=== PATIENT | male | born 1955 | race Caucasian/White ===

== ENCOUNTER 2022-06-25 09:29 | Outpatient (CLI) | payer MEDICARE, OTHER, SELFPAY | END 2022-06-25 09:30 | disposition home or self-care (01) | PROVIDERS: PCP Family Medicine; Visit Provider Family Medicine | DX: Z00.00 Encounter for general adult medical examination without abnormal findings (principal); E78.00 Pure hypercholesterolemia, unspecified; I10 Essential (primary) hypertension; E11.9 Type 2 diabetes mellitus without complications; R41.3 Other amnesia; R26.81 Unsteadiness on feet; R53.1 Weakness; R53.83 Other fatigue; Z12.5 Encounter for screening for malignant neoplasm of prostate | CPT/HCPCS: 80053; 80061; 82043; 82570; 84153; 84443 ==

== ENCOUNTER 2022-11-04 16:48 | Outpatient (CLI) | payer MEDICARE, OTHER, SELFPAY | END 2022-11-04 16:49 | disposition home or self-care (01) | PROVIDERS: PCP Family Medicine; Visit Provider Family Medicine | DX: Z00.00 Encounter for general adult medical examination without abnormal findings (principal); R63.4 Abnormal weight loss; E78.00 Pure hypercholesterolemia, unspecified; D64.9 Anemia, unspecified; I10 Essential (primary) hypertension; E11.9 Type 2 diabetes mellitus without complications | CPT/HCPCS: 82607; 82728; 83540 ==

== ENCOUNTER 2023-03-31 08:46 | Outpatient (CLI) | payer MEDICARE, OTHER, SELFPAY ==
--- OUTSIDE RECORDS SUMMARY | 2023-03-31 08:49 | XMS_ITS | Clinical Summary ---
Author Name Unknown Organization [facility] Address [address] [place] [address] Care Team Providers Care Sales Representative Business Courses Name Role Phone Unavailable Primary Care Provider Unavailabl e Source Comments You are receiving this document as you are listed as the primary care provider,follow-up provider, or the patient has been referred to you for consultation.This is in compliance with the Medicare and[facility] Cent[facility]aid EHR Incentive Program,which states Providers who transition their patient to another setting of careor provider of care or refers their patient to another provider of care shouldprovide summary care record for each transition of care or referral. [facility] Allergies Active Allergy Reactions Criticality Noted Date Comments Molds & Smuts Cough,Runny Nose Medium 06/27/2018 Nuts Breathing Difficulty High 12/27/2019 Penicillins Anaphylaxis High 12/27/2019 Medications Medication Sig Dispensed Refills Start Date End Date Status Pyridoxine HCl (B-6) 100 MG TABS 0 Active atorvastatin (LIPITOR) 10 MG tablet Take 1 Tablet by mouth daily. 90 Tablet 3 07/28/2020 Active donepezil (ARICEPT) 5 MG tablet Take 1 Tablet by mouth daily at bedtime. 90 Tablet 1 07/28/2020 Active lisinopril (ZESTRIL) 20 MG tablet Take 1 Tablet by mouth daily. 90 Tablet 3 07/28/2020 Active metFORMIN (GLUCOPHAGE) 1000 MG tablet TAKE 1 TABLET BY MOUTH TWICE DAILY WITH MEALS 180 Tablet 1 03/03/2021 Active Active Problems Problem Noted Date Diagnosed Date Diabetes mellitus, type 2 12/27/2019 Essential hypertension 12/27/2019 History of impaired cognition 12/27/2019 Hyperlipidemia 12/27/2019 FH: Parkinson's disease 12/27/2019 Overview: Mom Immunizations Name Administration Dates Next Due Flu Vac (3+ yrs) 01/29/2005,03/27/2004 Influenza IIV4 (Quadrivalent) 0.5mL (89219) 10/24 Influenza, Unspecified Formulation 03/15/2012 Tdap 11/10/2010 Zoster (Zostavax) 03/15/2012 Social History Tobacco Use Types Packs/Day Years Used Date Smoking Tobacco: Some Days Pipe Cigars Smokeless Tobacco: Never Comments:once month Alcohol Use Standard Drinks/Week Comments Yes 2 (1 standard drink = 0.6 oz pur e alcohol) PHQ-2 Answer Date Recorded PHQ-2 Score 2 07/28/2020 Sex and Gender Information Value Date Recorded Sex Assigned at Not on file Gender Identity Not on file Sexual Orientation Not on file Last Filed Vital Signs Vital Sign Reading Time Taken Comments Blood Pressure 138/72 07/28/2020 3:36 PM CDT Pulse 85 07/28/2020 3:36 PM CDT Temperature - - Respiratory Rate 16 07/28/2020 3:36 PM CDT Oxygen Saturation - - Inhaled Oxygen Concentration - - Weight 78.5 kg (173 lb) 07/28/2020 3:36 PM CDT Height 177.8 cm (5' 10) 07/28/2020 3:36 PM CDT Body Mass Index 24.82 07/28/2020 3:36 PM CDT Plan of Treatment Health Maintenance Due Date Last Done Comments Diabetes: Eye Exam 1955 Diabetes: Foot Exam 1955 Hep C Screening (Preventive Services) 1955 Pneumococcal 65+ Yrs (1 - PCV) 11/02/1959 FIT Colon Cancer Screening 1997 Zoster/Shingles (2 of 3) 05/10/2012 03/15/2012 Diabetes: HGBA1C 10/25/2020 07/25/2020, , 01/10/2019, Additional history exists DTaP/Tdap/Td (2 - Tdap) 11/10/2020 11/10/2010 Diabetes: Creatinine 07/25/2021 07/25/2020, 03/05/19 21 Diabetes: Urine Microalbumin 07/25/2021 07/25/2020 Medicare Annual Wellness Visit 07/28/2021 07/28/2020 COVID-19 Vaccine ( season) 2022 05/16/2020, 04/08/2020 Influenza (#1) 2022 11/21/2019, 02/22, 01/29/2005, Additional history exists Diabetes: Lipid Panel 07/25/2025 07/25/2020 Cholesterol Discontinued 07/25/2020 HepA Aged Out No longer eligi ble based on patient's age to complete this topic HepB Aged Out No longer eligi ble based on patient's age to complete this topic Hib Aged Out No longer eligi ble based on patient's age to complete this topic IPV (Polio) Aged Out No longer eligi ble based on patient's age to complete this topic MCV4 Aged Out No longer eligi ble based on patient's age to complete this topic [phone] [place] [address] Ravi Hernandez Personal/Family Self 1955 [phone] [place] [address]
--- OUTSIDE RECORDS SUMMARY | 2023-03-31 08:49 | XMS_ITS | Encounter Summary ---
Author Name Unknown Organization [facility] Address [address] [place] [address] Care Team Providers Care Assault Amphibious Vehicle Officer Name Role Phone Jing Garnett MD Primary Care Provider [phone] Reason for Visit * Reason Comments Refill metFORMIN (GLUCOPHAG E) 1000 MG tablet [Pharmacy Med Name: METFORMIN 1000MG TABLETS] Encounter Details Date Type Department Care Team Description 03/22/2022 Refill [place] [address] [facility] [id number] [place] [phone] [place] [address] [place], [place] [id number] Refill (metFORMIN (GLUCOPHAGE) 1000 MG tablet [Pharmacy Med Name: METFORMIN 1000MG TABLETS]) Social History Tobacco Use Types Packs/Day Years [...] on file Sexual Orientation Not on file documented as of this encounter Nursing Notes * Adina Cazares - 03/25/2022 8:56 AM CST Medication Refill - Due for Visit Medication still pending, patient is due to be seen in the next 30 days. Called patient, was: Successful in reaching patient. Patient is due for a: Video/Office Visit Patient declined to schedule due to: Patient no longer receiving care within organization. Frontline Action: Remove/update PCP. Remove pended medication and Sign Visit or if unable, route aslow priority to Refill Pool. SERVICES ARCHITECT * Apple Tobin - 03/24/2022 9:48 AM CST Medication Refill - Due for Visit Medication still pending, patient is due to be seen in the next 30 days. Called patient, was: Successful in reaching patient. We recently received a refill request for one of your medications. To continue managing your medication refills, your clinician would like to see you for a(n): Patient is due for a: Video/Office Visit Patient declined to schedule due to: The patient was driving and asked if someone could call him on03/26/22 to schedule a appointment. SERVICES ARCHITECT * Kenna Villeda RN - 03/24/2022 8:31 AM CST Further Assistance Needed on Refill from Shared Services Manager Patient is due for Qualifying Visit and lab(s). Medication is still pending. Patient is due for an Office/Video Visit in the next 30 days. Call Patient and document using .[email or web address]. After attempting to schedule patient: Please route to: Jing Garnett MD or covering provider. Requested Prescriptions Pending Prescriptions Disp Refills metFORMIN (GLUCOPHAGE) 1000 MG tablet [Pharmacy Med Name: METFORMIN 1000MG TABLETS] 180 Tablet 0 Sig: TAKE 1 TABLET BY MOUTH TWICE DAILY WITH MEALS SERVICES ARCHITECT * Interface, Out Surescripts Prov Query - 03/22/2022 4:13 PM CST metFORMIN (GLUCOPHAGE) 1000 MG tablet [Pharmacy Med Name: METFORMIN 1000MG TABLETS] Medication started: 12/21/2019 Last ordered by JING GARNETT: 03/03/2021 (384 days ago) QTY: 180, Refills: 1, Sig: take 1 tabletby mouth twice daily with meals (unchanged) -> An office visit is overdue (performed over 20 months ago, required every 12 months). -> Cr and HBA1C are overdue (performed over 20 months ago, required every 12 months) Last qualifying visit: 07/28/2020 (with JING GARNETT) Next scheduled visit: None Cr: 0.9 mg/dL on 07/25/2020 HBA1C: 7.1 % on 07/25/2020 [facility] Embedded Refills, Reference: [id number], 03/22/2022 4:13:24 PM WEB SERVICES ARCHITECT, Pool: LINK REFILL ([id number]) SERVICES ARCHITECT * Interface, Out Astaro Prov Query - 03/22/2022 4:13 PM CST The following lab order(s) may be associated with the Result Note below: HGB A1C; BASIC METABOLIC PANEL Notes recorded by Jing Garnett MD on 07/28/2020 at 3:32 PM CDT Discussed in clinic SERVICES ARCHITECT documented in this encounter Plan of Treatment Not on file documented as of this encounter Visit Diagnoses Not on filedocumented in this encounter Care Teams Assault Amphibious Vehicle Officer Relationship Specialty [place] [address] [place] [address] PCP - General Family Practice 06/04/20 03/24/22 documented as of this encounter
== END 2023-03-31 08:47 | disposition home or self-care (01) ==
PROVIDERS: PCP Family Medicine; Visit Provider Family Medicine
DX: Z00.00 Encounter for general adult medical examination without abnormal findings (principal); E78.00 Pure hypercholesterolemia, unspecified; I10 Essential (primary) hypertension; E11.9 Type 2 diabetes mellitus without complications; D64.9 Anemia, unspecified; R97.20 Elevated prostate specific antigen [PSA]
CPT/HCPCS: 80053; 80061; 82043; 82570; 82728; 83540; 84153; 84154

== ENCOUNTER 2023-07-12 13:26 | Outpatient (CLI) | payer MEDICARE, OTHER, SELFPAY ==
--- OUTSIDE RECORDS SUMMARY | 2023-07-12 13:29 | XMS_ITS | Clinical Summary ---
Author Name Unknown Organization [facility] Address [address] [place] [address] Care Team Providers Care Senior Embedded Software Engineer Name Role Phone Unavailable Primary Care Provider Unavailabl e Source Comments You are receiving this document as you are listed as the primary care provider,follow-up provider, or the patient has been referred to you for consultation.This is in compliance with the Medicare and[facility] Hospitalcaid EHR Incentive Program,which states Providers who transition their patient to another setting of careor provider of care or refers their patient to another provider of care shouldprovide summary care record for each transition of care or referral. [facility] Allergies Active Allergy Reactions Criticality Noted Date Comments Molds & Smuts Cough,Runny Nose Medium 06/27/2018 Nuts Breathing Difficulty High 12/27/2019 Penicillins Anaphylaxis High 12/27/2019 Medications Medication Sig Dispensed Refills Start Date End Date Status Pyridoxine HCl (B-6) 100 MG TABS Active atorvastatin (LIPITOR) 10 MG tablet Take [...] (3+ yrs) 01/29/2005,03/27/2004 Influenza IIV4 (Quadrivalent) 0.5mL (60173) 10/24 Influenza, Unspecified Formulation 03/15/2012 Tdap 11/10/2010 [...] Vaccine ( season) 2022 05/16/2020, 04/08/2020 Influenza (Season Ended) 2023 020, 03/15/2012, 01/29/2005, Additional history exists Diabetes: Lipid Panel [...] on patient's age to complete this topic Procedures Procedure Name Priority Date/Time Associated Diagnosis Comments BASIC METABOLIC PANEL Routine 07/25/2020 8:26 AM CDT Type 2 diabetes mellitus with diabetic neuropathy, without long-term current use of insulin (HRC) ALBUMIN/CREAT RATIO Routine 07/25/2020 8 :26 AM CDT Type 2 diabetes mellitus with diabetic neuropathy, without long-term current use of insulin (HRC) HGB A1C Routine 07/25/2020 8:26 AM CDT Type 2 diabetes mellitus with diabetic neuropathy, without long-term current use of insulin (HRC) LIPID PANEL & DIRECT LDL (IF NEEDED) Routine 07/25/2020 8:26 AM CDT Type 2 diabetes mellitus with diabetic neuropathy, without long-term current use of insulin (HRC) from Last 3 Months or Most Recently Relevant to Health Maintenance Results * (ABNORMAL) Lipid Panel - LDLD If Trig High (07/25/2020 8:26 AM CDT) [facility] Cholesterol 149 0 - 199 mg/dL 07/25/2020 12:36 PM T [facility] Triglyceride 255(H) <=149 mg/dL 07/25/2020 12:36 PM [facility] HDL Cholesterol 39(L) >=40 mg/dL 12:36 PM [facility] LDL, Calculated 59 <130 mg/dL 12:36 PM [facility] Non HDL Chol, Calculated 110 <=159 mg/dL 07/25/2020 12:36 PM [facility] Cholesterol/HDL Ratio 3.8 07/25/2020 12:36 PM [facility] Hours Fasting 9 07/25/2020 12:36 PM [facility] Blood Venipuncture / Unknown 07/25/2020 8:26 AM CDT 07/25/2020 8:26 AM CDT Delroy Carranza MD LAB_1 [facility] [address] [place] [address], [facility] [phone] [facility] [address] [place] [address], [facility] [phone] * (ABNORMAL) Basic Metabolic Panel (07/25/2020 8:26 AM CDT) Sodium 141 136 - 145 mmol/L 07/25/2020 12:36 PM [facility] Potassium 4.4 3.5 - 5.1 mmol/L 07/25/2020 12:36 PM [facility] Chloride 106 98 - 109 mmol/L 07/25/2020 12:36 PM [facility] CO2 25 20 - 29 mmol/L 07/25/2020 12:36 PM [facility] Anion Gap 10 7 - 16 mmol/L 07/25/2020 12:36 PM [facility] Calcium 9.2 8.4 - 10.4 mg/dL 07/25/2020 12:36 PM [facility] BUN 11 7 - 26 mg/dL 07/25/2020 12:36 PM [facility] Creatinine 0.90 0.73 - 1.18 mg/dL 07/25/2020 12:36 PM [facility] GFR, Estimated >60 >60 mL/min/1.7 3m2 07/25/2020 12:36 PM CDT [facility] Glucose 128(H) 70 - 100 mg/dL 07/25/2020 12:36 PM CDT [facility] Comment:The given reference range is for the fasting state. Non-fasting reference range for glucose is 70 - 180 mg/dL. Hours Fasting 9 07/25/2020 12:36 PM T [facility] Blood Venipuncture / Unknown 07/25/2020 8:26 AM CDT 07/25/2020 8:26 AM CDT Delroy Carranza MD LAB_1 Performing Organization Address [facility]/ZIP Co de Phone Number [facility] [address] [place] [address], [facility] [phone] [facility] [address] [place] [address], [facility] [phone] * Microalbumin Urine Random (UMAR) (07/25/2020 8:26 AM CDT) Albumin, Urine, Random 16.5 mg/L 07/25/2020 3:14 PM T [facility] Creatinine, Urine, Random 71 >20 mg/dL 07/25/2020 3:14 PM T [facility] Albumin/Creati nine Ratio, Urine, Random 23 <30 mg/g 07/25/2020 3:14 PM T [facility] Urine Non-blood Collection / Unknown 07/25/2020 8:26 AM CDT 07/25/2020 8:26 AM CDT Delroy Carranza MD LAB_1 [facility] [address] [place] [address], [facility] [phone] * (ABNORMAL) Hemoglobin A1C Glycosylated (07/25/2020 8:26 AM CDT) Hemoglobin A1C 7.1(H) <=5.6 % 07/25/2020 5:15 PM CDT [facility] Blood Venipuncture / Unknown 07/25/2020 8:26 AM CDT 07/25/2020 8:[address] [facility] - 07/25/2020 5:15 PM CDT For patients not previously diagnosed with diabetes: 5.7-6.4%: Increased risk for diabetes 6.5% and greater: Diagnostic for diabetes For patients diagnosed with diabetes: <8.0%: Goal of therapy for ages 18-75 Clinicians may recommend a higher or lower goal for specific individuals. Delroy Carranza MD LAB_1 [facility] [address] [address] [phone] from Last 3 Months or Most Recently Relevant to Health Maintenance [phone] [place] [address] Ravi Hernandez Personal/Family Self 1955 [phone] [place] [address]
== END 2023-07-12 13:27 | disposition home or self-care (01) ==
LOC: LKVREF 13:27
PROVIDERS: PCP Family Medicine; Visit Provider Family Medicine
DX: E11.9 Type 2 diabetes mellitus without complications (principal); I10 Essential (primary) hypertension; R26.81 Unsteadiness on feet; Z91.148 Patient's other noncompliance with medication regimen for other reason
CPT/HCPCS: 82728

== ENCOUNTER 2023-10-11 13:17 | Outpatient (CLI) | payer MEDICARE, OTHER, SELFPAY ==
--- OUTSIDE RECORDS SUMMARY | 2023-10-11 13:22 | XMS_ITS | Clinical Summary ---
Author Organization [facility] Address [address] [place] [address] Care Team Providers Care Manager Underwriting Name Role Phone Unavailable Primary Care Provider Unavailabl e Source Comments You are receiving this document as you are listed as the primary care provider,follow-up provider, or the patient has been referred to you for consultation.This is in compliance with the Medicare andS[facility] Hospitalcaid EHR Incentive Program,which states Providers who transition their patient to another setting of careor provider of care or refers their patient to another provider of care shouldprovide summary care record for each transition of care or referral. [employer] Allergies Active Allergy Reactions Criticality Noted Date [...] 12/27/2019 Hyperlipidemia 12/27/2019 FH: Parkinson's disease 12/27/2019 Overview (12/27/2019): Mom Immunizations Name Administration Dates Next Due Flu Vac (3+ yrs) 01/29/2005,03/27/2004 Influenza IIV4 (Quadrivalent) 0.5mL (35154) 10/24 Influenza, Unspecified Formulation 03/15/2012 Tdap 11/10/2010 [...] ( season) 2022 05/16/2020, 04/08/2020 Influenza (#1) 2023 11/21/2019, 02/22, 01/29/2005, Additional history exists Diabetes: [...] If Trig High (07/25/2020 8:26 AM CDT) [facility] Cholesterol 149 0 - 199 mg/dL 07/25/2020 12:36 PM T [facility] Triglyceride 255(H) <=149 mg/dL 07/25/2020 12:36 PM [facility] HDL Cholesterol 39(L) >=40 mg/dL 12:36 PM [facility] LDL, Calculated 59 <130 mg/dL 12:36 PM [facility] Non HDL Chol, Calculated 110 <=159 mg/dL 07/25/2020 12:36 PM [facility] Cholesterol/HDL Ratio 3.8 07/25/2020 12:36 PM [facility] Hours Fasting 9 07/25/2020 12:36 PM [facility] Blood Venipuncture / Unknown 07/25/2020 8:26 AM CDT 07/25/2020 8:26 AM CDT Delroy Carranza MD LAB_1 [facility] [address] [place] [address], [facility] [phone] [facility] [address] [place] [address], [facility] [phone] * (ABNORMAL) Basic Metabolic Panel (07/25/2020 8:26 AM CDT) Sodium 141 136 - 145 mmol/L 07/25/2020 12:36 PM [facility] Potassium 4.4 3.5 - 5.1 mmol/L 07/25/2020 12:36 PM [facility] Chloride 106 98 - 109 mmol/L 07/25/2020 12:36 PM [facility] CO2 25 20 - 29 mmol/L 07/25/2020 12:36 PM [facility] Anion Gap 10 7 - 16 mmol/L 07/25/2020 12:36 PM [facility] Calcium 9.2 8.4 - 10.4 mg/dL 07/25/2020 12:36 PM [facility] BUN 11 7 - 26 mg/dL 07/25/2020 12:36 PM [facility] Creatinine 0.90 0.73 - 1.18 mg/dL 07/25/2020 12:36 PM [facility] GFR, Estimated >60 >60 mL/min/1.7 3m2 07/25/2020 12:36 PM CDT [facility] Glucose 128(H) 70 - 100 mg/dL 07/25/2020 12:36 PM CDT [facility] Comment:The given reference range is for the fasting state. Non-fasting reference range for glucose is 70 - 180 mg/dL. Hours Fasting 9 07/25/2020 12:36 PM CDT [facility] Blood Venipuncture / Unknown 07/25/2020 8:26 AM CDT 07/25/2020 8:26 AM CDT Delroy Carranza MD LAB_1 Performing Organization Address [facility]/ZIP Co de Phone Number [facility] [address] [place] [address], [facility] [phone] [facility] [address] [place] [address], [facility] [phone] * Microalbumin Urine Random (UMAR) (07/25/2020 8:26 AM CDT) Albumin, Urine, Random 16.5 mg/L 07/25/2020 3:14 PM CDT [facility] Creatinine, Urine, Random 71 >20 mg/dL 07/25/2020 3:14 PM CDT [facility] Albumin/Creati nine Ratio, Urine, Random 23 <30 mg/g 07/25/2020 3:14 PM T [facility] Urine Non-blood Collection / Unknown 07/25/2020 8:26 AM CDT 07/25/2020 8:26 AM CDT Delroy Carranza MD LAB_1 Performing Organization Address [facility]/ZIP Co de Phone Number [facility] [address] [place] [address], [facility] [phone] * (ABNORMAL) Hemoglobin A1C Glycosylated (07/25/2020 8:26 AM CDT) Hemoglobin A1C 7.1(H) <=5.6 % 07/25/2020 5:15 PM CDT [facility] Blood Venipuncture / Unknown 07/25/2020 8:26 AM CDT 07/25/2020 8:26 AM CDT Narrative [facility] [place] [facility] - 07/25/2020 5:15 PM CDT For patients not previously diagnosed with diabetes: 5.7-6.4%: Increased risk for diabetes 6.5% and greater: Diagnostic for diabetes For patients diagnosed with diabetes: <8.0%: Goal of therapy for ages 18-75 Clinicians may recommend a higher or lower goal for specific individuals. Delroy Carranza MD LAB_1 [facility] [address] [address] [phone] from Last 3 Months or Most Recently Relevant to Health Maintenance [phone] [place] [address] Ravi Hernandez Personal/Family Self 1955 [phone] [place] [address]
== END 2023-10-11 13:18 | disposition home or self-care (01) ==
PROVIDERS: PCP Family Medicine; Visit Provider Family Medicine
DX: E78.00 Pure hypercholesterolemia, unspecified (principal); I10 Essential (primary) hypertension; D64.9 Anemia, unspecified; E11.9 Type 2 diabetes mellitus without complications
CPT/HCPCS: 80048; 80061

== ENCOUNTER 2023-10-19 12:40 | Outpatient (CLI) | payer MEDICARE, OTHER, SELFPAY ==
--- OUTSIDE RECORDS SUMMARY | 2023-10-19 12:43 | XMS_ITS | Data Portability ---
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 Not available 06/25/2021 14:18:42 10/01/2021 10/01/2021 65 year old male with an elevated prostate specific antigen here for prostate biopsy. Not available 09/30/2021 20:37:41 Plan of Treatment Reminders Order Date Submit Date Provider Last Modified By Organization Details Last Modified Time Details Appointments None recorded. Lab urinalysis, dipstick 2021 [facility], [address], [address], [place], [address], 14:44:33 biopsy, prostate 2021 [facility], [address], [address], [place], [address], 13:32:27 Referral None recorded. Procedures None recorded. Surgeries None recorded. Imaging MRI, prostate, w/wo contrast - please schedule this pt //pt req do not leave VM 2021 [place], [address], [address], [place], [address], 17:39:15 Medication Orders ciprofloxac in 500 mg tablet 2021 LILY [id number], [address], [place], [phone], 14:23:40 tobramycin 40 mg/mL injection solution 2021 022 [email or web address] [facility] #[id number], [address], [place], [phone], 10:06:54 Patient TargetsNo targets recorded. Patient Instructions Encounter Date Encounter Id Patient Instructions Last Modified By Organization Details Last Modified Time 06/25/2021 [id number] INSTRUCTIONS FOR PROSTATE ULTRASOUND AND / OR PROSTATE BIOPSY You have been scheduled for a transrectal ultrasound of the prostate to be done by Dr. Nagi Casper. This procedure will be done at the [facility] either in our [place] office near [facility] or at our [place] office. It is relatively painless and provides excellent anatomical detail of your prostate gland. The procedure involves inserting a small probe in the rectum, which takes ultrasound pictures of your prostate, seminal vesicles, and bladder. Please come to the procedure with a full bladder. Avoid urinating at least two hours prior to the procedure. It is not necessary to fast overnight. You may eat breakfast, and lunch the day of your procedure. There are certain medications that can interfere with the normal clotting of the blood. Please follow directions for medications that should be discontinued prior to procedure: ASPIRIN ? please do not take Aspirin for at least 5 days prior to your scheduled prostate biopsy, and at least 2 days after your biopsy. PLAVIX / CLOPIDOGREL and ELIQUIS/APIXABAN ? Patients who take these medications should check with their ordering provider about holding these medications prior to procedure. We recommend if you are on Plavix or Eliquis and if your [employer] Developer or ordering provider agrees, you should discontinue taking this medication for 7 days prior to the prostate biopsy. Most patients may resume it 2 days after the biopsy provided there is no serious bleeding. OTHER BLOOD THINNERS ? COUMADIN/WARFARIN, or XARELTO ? please discontinue these medications 5 days before the biopsy, and resume 2 days following the biopsy provided there is no serious bleeding. In order to clean out the rectum of any retained stool, you must give yourself a Fleet Enema two hours prior to the scheduled ultrasound. A Fleet Enema can be purchased over- the-counter without a prescription, at any pharmacy. Please follow the instructions on the label to administer the enema. A prostate biopsy is often performed at the time of your prostate ultrasound. This is done to rule out the possibility of prostate cancer. The biopsy is done under ultrasonic guidance using a tiny needle that transverses the wall of the rectum and goes directly into the prostate. Before the biopsy is performed, Dr. Casper will use the ultrasonic probe to inject a local anesthetic to decrease the sensation of pain in the prostate. Next, a trigger-activated biopsy needle is used to take approximately 12 samples of the prostate tissue. Most patients will experience a little discomfort with the passage of this needle, but the pain is usually not severe due to the fact there are very few nerve fibers in this part of your anatomy. An antibiotic will be prescribed prior to your scheduled prostate ultrasound and biopsy. This antibiotic is called Ciprofloxacin. Take this one out before your biopsy. These instructions will also be written on the prescription when picked up from your pharmacy. Most patients experience very little pain following the prostate biopsy. You can expect to have a little blood in the urine, or in the stool for up to two weeks after the biopsy. You may also experience a low-grade temperature (fever) that evening. If you are sexually active, you may notice blood in the semen for several weeks. Please make sure to drink plenty of fluids (water) after the procedure. Most patients are able to return to work the next day. No heavy lifting is recommended for 48 hours. Complications follow this procedure are rare. Symptoms to watch for are shaking chills with a fever, severe bleeding with the passage of large blood clots form either the rectum or penis, or difficulty urinating. If you experience any of these symptoms contact our office at [phone]. The prostate biopsy specimens are sent to pathology for microscopic analysis. The final reports is completed within 1-2 business days. You will be notified of the results by Dr. Casper personally. Please be sure to provide a day-time telephone number. If you do not receive the results, please call [phone]. Not available 06/25/2021 14:23:02 We discussed the significance of an elevated serum prostate specific antigen and its utility in screening for prostate cancer. We discussed that while prostate specific antigen levels may be elevated in some men due to benign causes such as trauma, recent sexual intercourse, urinary tract infections, or recent instrumentation, it may also be indicative of underlying prostate cancer. We discussed that a serum prostate specific antigen test alone is not sufficient to determine if prostate cancer is present and further testing is warranted. We then discussed the available options for further evaluations. One option would be to proceed with transrectal ultrasound with prostate needle biopsy. This allows for sampling of the prostate in areas where cancer is likely to be found. This will allow for detection of underlying prostate cancer if it is present. We discussed the limitations of this including under sampling which may lead to under diagnosis. We also discussed the risks most notably bleeding to a degree enough to require intervention (1-2.5%) and infection which may result in hospitalization (1-3%). We also discussed expected after effects of biopsy including temporary hematuria, blood per rectum, and hematospermia which are considered normal after this procedure. A second option we discussed would be to proceed first with an MRI of the prostate. This would allow for detection of underlying lesions of the prostate which are suspicious for cancer. This information could then be utilized for ultrasound-MRI fusion biopsies which may result in improved detection of underlying prostate cancer and also facilitate intermediate surveillance for men in which low risk prostate cancers are identified. We then discussed the role of adjunctive testing in the form (4k score, iso-PSA, or ExoDx) to help better inform risk profile. While this does not tell a man whether he has prostate cancer this may be helpful in making a decision about whether to proceed with a prostate biopsy. He would like to proceed with MRI of the prostate with Uronav prostate biopsy. Not available 06/25/2021 14:22:55 10/01/2021 [id number] Elevated prostat e specific antigen: The patient tolerated the procedure well. We discussed that he can expect to have blood coating the stool for a few days, pink or reddish urine which may be normal, and rust colored ejaculate for up to one month. We discussed important warning signs such as fevers >100.4 which may be indicative of sepsis, worsening blood in the urine with clots and urinary retention, or worsening blood per rectum. In each other these circumstances he should contact the office immediately or go to the Emergency Department. He will be contacted with the results of his biopsy. If he does not receive these results within 5-7 business days he should contact our office. [email or web address] Not available 09/30/2021 20:37:30 Reason for Referral None Reported. Results Created Date Observation Date Name Description Value Unit Range Abnormal Flag Note LastModifiedBy Organization Detail LastModifiedTime 06/26/19 22 06/25/2021 UA DIP CS ADVAN TUS color -advantus YELLOW yellow Not Available [facility] [address] [place] [address], [place], [address], 06/25/2021 14:44:33 06/26/19 22 06/25/2021 UA DIP CS ADVAN TUS appearance -advantus CLEAR clear Not Available [facility] [address] [place] [address], [place], [address], 06/25/2021 14:44:33 06/26/19 22 06/25/2021 UA DIP CS ADVAN TUS glucose -advantus NEGATI VE mg/dL negati ve Not Available [facility] [address] [place] [address], [place], [address], 06/25/2021 14:44:33 06/26/19 22 06/25/2021 UA DIP CS ADVAN TUS bilirubin -advantus NEGATI VE negati ve Not Available [facility] [address] [place] [address], [place], [address], 06/25/2021 14:44:33 06/26/19 22 06/25/2021 UA DIP CS ADVAN TUS ketones -advantus NEGATI VE mg/dL negati ve Not Available [facility] [address] [place] [address], [place], [address], 06/25/2021 14:44:33 06/26/19 22 06/25/2021 UA DIP CS ADVAN TUS sp. gravity -advantus 1.025 1.010- 1.025 Not Available [facility] [address], [place], [address], 06/25/2021 14:44:33 06/26/19 22 06/25/2021 UA DIP CS ADVAN TUS pH -advantus 5.5 5.0-8. 0 Not Available [facility] [address] [place] [address], [place], [address], 06/25/2021 14:44:33 06/26/19 22 06/25/2021 UA DIP CS ADVAN TUS protein -advantus NEGATI VE mg/dL negati ve Not Available [facility] [address] [place] [address], [place], [address], 06/25/2021 14:44:33 06/26/19 22 06/25/2021 UA DIP CS ADVAN TUS urobilinogen -advantus 0.2 normal Not Available [facility] [address], [place], [address], 06/25/2021 14:44:33 06/26/19 22 06/25/2021 UA DIP CS ADVAN TUS nitrites -advantus NEGATI VE negati ve Not Available [facility] [address] [place] [address], [place], [address], 06/25/2021 14:44:33 06/26/19 22 06/25/2021 UA DIP CS ADVAN TUS blood -advantus NEGATI VE negati ve Not Available [facility] [address] [place] [address], [place], [address], 06/25/2021 14:44:33 06/26/19 22 06/25/2021 UA DIP CS ADVAN TUS leukocytes -advantus NEGATI VE negati ve Not Available [facility] [address] [place] [address], [place], [address], 06/25/2021 14:44:33 06/26/19 22 06/25/2021 UA DIP CS ADVAN TUS performed by Macrina Cordova Not Available [facility] [address], [place], [address], 06/25/2021 14:44:33 06/26/19 22 06/25/2021 UA DIP CS ADVAN TUS total urine volume (mL) 30 /mL ----- ----- ----- ----- ----- ----- ----- ----- ----- ----- ----- ----- ----- ----- ---- *Plea note the follo wing minim um quant ities for addit ional urine testi ng: - Atypi cals: 3 mL - Cytol ogy: 20 mL - GC/CH : 2 mL - FISH: 30 mL - Atypi cals w/ GC/CH : 5 mL - Cytol ogy PLUS FISH: 50 mL - Urine Cultu re: 3 mL ----- ----- ----- ----- ----- ----- ----- ----- ----- ----- ----- ----- ----- ----- ---- Not Available [facility] [address], [place], [address], 06/25/2021 14:44:33 07/10/19 22 07/09/2021 MRI, prost ate, w/wo contr ast No observ ation record ed. [facility] [address], [place], [address], 07/09/2021 20:45:58 Result Notes None recorded. Problems Name Problem SNOMED Code Status Onset Date Resolution Date Notes Provider Name and Address Organization Details Recorded Time Prostate specific antigen above reference range 687221309 Active 2023 Warren Meath null, [facility] 4 10:01:17 Type 2 diabetes mellitus 66928955 [facility] 4 10:02:33 Hypertensive disorder 19246908 Active 2023 Warren Ojeda null, [facility] 4 10:02:41 Hyperlipidemia 32984143 [facility] 4 10:02:50 Problem Notes None recorded. Procedures Surgical History Date Name Laterality Status Provider Name and Address Organization Details Recorded Time 2 Prostate Biopsy Procedure completed Nagi Casper MD [address], [place], [address], [facility] 09/30/2021 20:37:13 2 Tobramycin Injection completed Cat Jordan [facility] 10/01/2021 10:07:57 2 Bladder Scan completed Jen Hodges [facility] 06/25/2021 14:14:14 Imaging Results Imaging Date Name Status LastModified by Organiz ation Details LastModified Time 07/09/2021 MRI, prostate, w/wo contrast [place] [id number] [facility] [address] [place] [address] [address], [place], [address], 07/09/2021 20:45:58 Procedure Notes None recorded. Medical Equipment None Reported. Allergies Allergen ID Allergen Name Allergen Category Reaction Reaction Severity Criticality Documentation Date Start Date Code Code System Note Provider Name and Address Organization Details Recorded Time 492719 Medicinal product containin g penicilli n and acting as antibacte rial agent (product) medicatio n Not available Not available Not available 05/11/2023 62190 05 SNOMED [facility] 4 10:02:20 Medications Name Sig Start Date Stop Date Status Note LastModified by Organization Details LastModified Time metformin 500 mg tablet TAKE 1 TABLET BY MOUTH TWICE DAILY WITH A MEAL active Not Available Not Available No t Available donepezil 5 mg tablet TAKE 1 TABLET BY MOUTH DAILY active Not Available Not Available No t Available atorvastatin 10 mg tablet TAKE 1 TABLET BY MOUTH DAILY active Not Available Not Available No t Available lisinopril 20 mg tablet TAKE 1 TABLET BY MOUTH DAILY active Not Available Not Available No t Available Accu-Chek Softclix Lancets TEST TWICE DAILY active Not Available Not Available No t Available ciprofloxacin 500 mg tablet TAKE 1 TABLET BY MOUTH 1 HOUR PRIOR TO PROSTATE BIOPSY active Not Available Not Available No t Available doxycycline monohydrate 100 mg capsule TAKE 1 CAPSULE BY MOUTH TWICE DAILY FOR 14 DAYS active Not Available Not Available No t Available cephalexin 500 mg capsule TAKE 1 CAPSULE BY MOUTH THREE TIMES DAILY active Not Available Not Available No t Available metformin 1,000 mg tablet TAKE 1 TABLET BY MOUTH TWICE DAILY WITH MEALS active Not Available Not Available No t Available tobramycin 40 mg/mL injection solution 160mg prior to procedure 2021 active Not Available Not Available Not Avai lable lisinopril 2.5 mg tablet TAKE 1 TABLET BY MOUTH DAILY active Not Available Not Available No t Available rosuvastatin 5 mg tablet TAKE 1 TABLET BY MOUTH DAILY active Not Available Not Available No t Available rosuvastatin 10 mg tablet TAKE 1 TABLET BY MOUTH DAILY active Not Available Not Available No t Available Accu-Chek Guide test strips USE 1 TO TEST TWICE DAILY active Not Available Not Available No t Available Accu-Chek Guide Me Glucose Meter USE DIRECTED active Not Available Not Available No t Available Vitals Date Recorded Body height Body mass index (BMI) Body weight Provider Name and Address Organization Details Last Updated DateTime 10/01/2021 172.72 cm 28.4 kg/m2 46004.77 g Jose Carrillo [facility] 10/01/2021 09:07:56 Date Recorded Body height Heart rate Systolic blood pressure Diastolic blood pressure Provider Name and Address Organization Details Last Updated DateTime 10/01/2021 172.72 cm 99 /min 155 mm[Hg] 91 mm[Hg] Cat Jordan [facility] 10/01/2021 10:08:10 Social History Question Answer Notes LastModified by Organizat ion Details LastModified Time Tobacco Smoking Status Never Smoker once in a while will smoke cigars Jencarlos zapata [facility] 06/25/2021 14:12:34 What Is Your Level Of Alcohol Consumption? Occasional Three Martinis A Week Information not available 06/25/2021 What Is Your Level Of Caffeine Consumption? Occasional 2-3 Times Monthly/stovall s Take Exedrine W/ Caffeine Daily Information not available 06/25/2021 Are You Currently Employed? No Information not available 06/25/2021 Do You Or Have You Ever Used E-cigarettes Or Vape? Never Used Electronic Cigarettes Information not available 06/25/2021 What Was The Date Of Your Most Recent Tobacco Screening? 10/01/2021 [email or web address] Information not available 10/01/2021 What Is Your Relationship Status? Information not available 06/25/2021 Are You Sexually Active? No Information not available 06/25/2021 Do You Or Have You Ever Used Smokeless Tobacco? Never Used Smokeless Tobacco Information not available 06/25/2021 Do You Use Any Illicit Or Recreational Drugs? No Information not available 06/25/2021 Has Tobacco Cessation Counseling Been Provided? Yes [email or web address] Information not available 10/01/2021 On What Date Was Tobacco Cessation Counseling Provided? 10/01/2021 [email or web address] Information not available 10/01/2021 Do You Or Have You Ever Used Any Other Forms Of Tobacco Or Nicotine? Yes Information not available 06/25/2021 Sex: Unknown Functional Status None recorded. Mental Status None recorded. Family History Relationship Description Onset Age of this Age Resolved Age Notes Paternal Uncle Family history of ca ncer of colon Father Leukemia Brother Leukemia Brother Neoplasm of skin Mother Leukemia Medical History Condition Response Other N Kidney Stones N Depression N Sexually Transmitted Infection N Cancer N Bleeding Disorder N Lung Disease N GERD/Acid Reflux N High Cholesterol Y Diabetes Y Heart Disease N Immunizations Vaccine Type Date Status Provider Name and Address Organization Details Recorded Time zoster live 03/15/2012 completed Jose zapata [facility] 10/01/2021 09:08:04 zoster recombinant [facility]01/[facility] 09:08:04 Influenza, split virus, trivalent, preservative 01/29/2005 lukas zapata [facility] 10/01/2021 09:08:04 Influenza, high-dose, quadrivalent, PF 01/27/2021 lukas zapata [facility] 10/01/2021 09:08:04 Tdap 11/10/2010 completed Jose zapata, [facility] 10/01/2021 09:08:04 COVID-19, mRNA, LNP-S, PF, 100 mcg/0.5mL dose or 50 mcg/0.25mL dose 03/27/2021 [facility] 09:08:04 COVID-19, mRNA, LNP-S, PF, 100 mcg/0.5mL dose or 50 mcg/0.25mL dose 04/08/2020 [facility]01[facility]21 09:08:04 Influenza, split virus, quadrivalent, PF 11/21/2019 [facility]/01/2021 09:08:04 zoster recombinant 04/16/2021 completed Jose zapata, [facility] 10/01/2021 09:08:04 COVID-19, mRNA, LNP-S, PF, 100 mcg/0.5mL dose or 50 mcg/0.25mL dose 05/16/2020 [facility]/01/2021 09:08:04 Influenza, split virus, trivalent, preservative 03/27/2004 [facility]/01[facility]2021 09:08:04 influenza, unspecified formulation 03/15/2012 [facility]/01/2021 09:08:04 Past Encounters Encounter ID Performer Location Encounter Start Date Encounter Closed Date Diagnosis/Indication Diagnosis SNOMED-CT Code [id number] Nagi Casper MD [facility] [address] [place] [id number] 06/25/2021 13:49:10 06/25/2021 14:27:10 Prostate specific antigen above reference range [id number] [facility] [address] [place] [id number] 10/01/2021 08:43:17 10/01/2021 09:44:40 Prostate specific antigen above reference range [id number] Cat august [address] [place] [address] 10/01/2021 08:41:40 10/01/2021 11:36:17 Prostate specific antigen above reference range [id number] Health Concerns Section Related Observation LastModified by Organization Detai ls LastModified Time None Recorded Concern Status LastModified by Organization Details LastModified Time None Recorded Advance Directives Directive None Recorded Payers Encounter Date Sequence Insurance Name Policy Number Policy [employer] Covered Member ID Cox Member ID Guarantor Name 06/25/2021 1 [place] [employer] Ravi Hernandez [id number] Ravi Hernandez 06/25/2021 2 [employer] (MEDICARE SUPPLEMENT) Ravi Hernandez [id number] Ravi Hernandez 10/01/2021 1 [place] [id number] Ravi Hernandez [id number] Ravi Hernandez 10/01/2021 2 [employer] (MEDICARE SUPPLEMENT) Ravi Hernandez [id number] Ravi Hernandez 10/01/2021 1 [place] [employer] Ravi Hernandez [id number] Ravi Hernandez 10/01/2021 2 [employer] (MEDICARE SUPPLEMENT) Ravi Hernandez [id number] Ravi Hernandez Notes Date Note Type Note Provider Name and Address Organization Details Recorded Time 06/25/2021 text/html HPI Notes: This is a 65 year old male who is referred by Dr. Abdalla for the evaluation and management of an elevated prostate specific antigen. He underwent screening prostate specific antigen. This was noted to be elevated to 4.64 ng/mL (03/19/2021). He has no prior history of prostate specific antigen elevations. There is no family history of prostate cancer. Nagi Casper MD [address] [facility], [place], [address], [facility] 06/25/2021 14:23:45 10/01/2021 text/html HPI Notes: This is a 65 year old male with an elevated prostate specific antigen here for prostate biopsy. He was noted to have an elevated prostate specific antigen of 4.64 ng/mL (03/19/2021). He has no prior history of prostate specific antigen elevations. There is no family history of prostate cancer. An MRI of the prostate with and without intravenous contrast on 07/09/2021 which revealed no worrisome PI-RADS lesions. He is here for transrectal ultrasound guided prostate biopsy. Nagi Casper MD [address] [place] [address],[address], [place], [address], [facility] 10/01/2021 09:33:57
--- OUTSIDE RECORDS SUMMARY | 2023-10-19 12:43 | XMS_ITS | Clinical Summary ---
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 [facility] Allergies Active Allergy Reactions Criticality Noted Date [...] (3+ yrs) 01/29/2005,03/27/2004 Influenza IIV4 (Quadrivalent) 0.5mL (55880) 10/24 Influenza, Unspecified Formulation 03/15/2012 Tdap 11/10/2010 [...] If Trig High (07/25/2020 8:26 AM CDT) [facility] Cholesterol 149 0 - 199 mg/dL 07/25/2020 12:36 PM T [facility] Triglyceride 255(H) <=149 mg/dL 07/25/2020 12:36 PM [facility] HDL Cholesterol 39(L) >=40 mg/dL 12:36 PM [facility] LDL, Calculated 59 <130 mg/dL 12:36 PM [facility] Non HDL Chol, Calculated 110 <=159 mg/dL 07/25/2020 12:36 PM [facility] Cholesterol/HDL Ratio 3.8 07/25/2020 12:36 PM [facility] Hours Fasting 9 07/25/2020 12:36 PM [facility] Blood Venipuncture / Unknown 07/25/2020 8:26 AM CDT 07/25/2020 8:26 AM CDT Delroy Carranza MD LAB_1 [facility] [address] [place] [address], [facility] [phone] [facility] [address] [place] [address], [facility] [phone] * (ABNORMAL) Basic Metabolic Panel (07/25/2020 8:26 AM CDT) Sodium 141 136 - 145 mmol/L 07/25/2020 12:36 PM [facility] Potassium 4.4 3.5 - 5.1 mmol/L 07/25/2020 12:36 PM [facility] Chloride 106 98 - 109 mmol/L 07/25/2020 12:36 PM [facility] CO2 25 20 - 29 mmol/L 07/25/2020 12:36 PM [facility] Anion Gap 10 7 - 16 mmol/L 07/25/2020 12:36 PM [facility] Calcium 9.2 8.4 - 10.4 mg/dL 07/25/2020 12:36 PM [facility] BUN 11 7 - 26 mg/dL 07/25/2020 12:36 PM [facility] Creatinine 0.90 0.73 - 1.18 mg/dL 07/25/2020 12:36 PM [facility] GFR, Estimated >60 >60 mL/min/1.7 3m2 07/25/2020 12:36 PM CDT [facility] Glucose 128(H) 70 - 100 mg/dL 07/25/2020 12:36 PM CDT [facility] Comment:The given reference range is for the fasting state. Non-fasting reference range for glucose is 70 - 180 mg/dL. Hours Fasting 9 07/25/2020 12:36 PM CDT [facility] Blood Venipuncture / Unknown 07/25/2020 8:26 AM CDT 07/25/2020 8:26 AM CDT Delroy Carranza MD LAB_1 Performing Organization Address [facility]/ZIP Co de Phone Number [facility] [address] [place] [address], [facility] [phone] [facility] [address] [place] [address], [facility] [phone] * Microalbumin Urine Random (UMAR) (07/25/2020 8:26 AM CDT) Albumin, Urine, Random 16.5 mg/L 07/25/2020 3:14 PM CDT [facility] Creatinine, Urine, Random 71 >20 mg/dL 07/25/2020 3:14 PM CDT [facility] Albumin/Creati nine Ratio, Urine, Random 23 <30 mg/g 07/25/2020 3:14 PM T [facility] Urine Non-blood Collection / Unknown 07/25/2020 8:26 AM CDT 07/25/2020 8:26 AM CDT Delroy Carranza MD LAB_1 Performing Organization Address [facility]/ZIP Co de Phone Number [facility] [address] [place] [address], [facility] [phone] * (ABNORMAL) Hemoglobin A1C Glycosylated (07/25/2020 8:26 AM CDT) Hemoglobin A1C 7.1(H) <=5.6 % 07/25/2020 5:15 PM CDT [facility] Blood Venipuncture / Unknown 07/25/2020 8:26 AM CDT 07/25/2020 8:26 AM CDT N[facility]ative [facility] - 07/25/2020 5:15 PM CDT For patients not previously diagnosed with diabetes: 5.7-6.4%: Increased risk for diabetes 6.5% and greater: Diagnostic for diabetes For patients diagnosed with diabetes: <8.0%: Goal of therapy for ages 18-75 Clinicians may recommend a higher or lower goal for specific individuals. Delroy Carranza MD LAB_1 [facility] [address] [address] [phone] from Last 3 Months or Most Recently Relevant to Health Maintenance [phone] [place] [address] Ravi Hernandez Personal/Family Self 1955 [phone] [place] [address]
--- NOTE | 2023-10-19 13:15 | CRLHL7_ITS ---
For Patients: As a result of the Century Cures Act, medical imaging exams and procedure reports are released immediately into your electronic medical record. You may view this report before your referring provider. If you have questions, please contact your health care provider. INDICATION: Screening for abdominal aortic aneurysm. TECHNIQUE: Ultrasound aorta with color Doppler analysis. COMPARISON: None. FINDINGS: The proximal abdominal aorta measures 2.7 x 2.4 cm, mid aorta measures 2.1 x 2.3 cm, distal aorta measures 2.3 x 2.3 cm, right common iliac artery measures 1.1 x 1.2 cm, and the left common iliac artery measures 1.1 x 1.1 cm. There are no periaortic abnormalities evident. IMPRESSION: Normal ultrasound of the abdominal aorta. No sign of aneurysm. Dictated by Lupillo Wells MD @ 10/20/2023 7:42:36 AM (Electronically Signed)
== END 2023-10-19 12:41 | disposition home or self-care (01) ==
LOC: US 12:41
PROVIDERS: PCP Family Medicine; Visit Provider Family Medicine
DX: Z13.6 Encounter for screening for cardiovascular disorders (principal)
CPT/HCPCS: 76775

== ENCOUNTER 2024-04-02 15:02 | Outpatient (CLI) | payer MEDICARE, OTHER, SELFPAY | END 2024-04-02 15:03 | disposition home or self-care (01) | PROVIDERS: PCP Family Medicine; Visit Provider Family Medicine | DX: E11.9 Type 2 diabetes mellitus without complications (principal); D64.9 Anemia, unspecified; I10 Essential (primary) hypertension; Z12.5 Encounter for screening for malignant neoplasm of prostate | CPT/HCPCS: 82728; 83540; G0103 ==

== ENCOUNTER 2024-09-28 08:10 | Outpatient (CLI) | payer MEDICARE, SELFPAY | END 2024-09-28 08:11 | disposition home or self-care (01) | LOC: NFLDREF 10-03 12:54 | PROVIDERS: PCP Family Medicine; Referring Provider Family Medicine; Visit Provider Family Medicine | DX: E11.9 Type 2 diabetes mellitus without complications (principal); D64.9 Anemia, unspecified; E78.00 Pure hypercholesterolemia, unspecified | CPT/HCPCS: 80053; 80061; 82043; 82570 ==